=== PATIENT | female | born 1980 | race Caucasian/White ===

== ENCOUNTER 2016-04-29 08:59 | Emergency (ER) | payer MEDICAID ==
[~2016-04-29] VITALS: Ht 154.9 cm; Wt 66.0 kg
[~2016-04-29 08:59] MED LIST: IBUP800T25 PO
[2016-04-29 09:08] VITALS: Ht 154.9 cm; Wt 66.0 kg
[2016-04-29 10:59] LABS: BASOPHILS % 0.3 % (0.0-2.0); EOSINOPHILS # 0.1 10^3/ul (0.0-0.5); EOSINOPHILS % 0.9 % (0.0-7.0); HEMATOCRIT 37.5 % (37.0-47.0); HEMOGLOBIN 12.6 g/dl (12.0-16.0); LYMPHOCYTES # 1.7 10^3/ul (0.8-2.9); LYMPHOCYTES % 21.4 % (15.0-51.0); MEAN CORPUSCULAR HEMOGLOBIN 28.6 pg (29.0-33.0); MEAN CORPUSCULAR HGB CONC 33.7 g/dl (32.0-37.0); MEAN CORPUSCULAR VOLUME 84.9 fl (82.0-101.0); MEAN PLATELET VOLUME 8.4 fl (7.4-10.4); MONOCYTE # 0.3 10^3/ul (0.3-0.9); MONOCYTES % 4.1 % (0.0-11.0); NEUTROPHIL # 5.7 10^3/ul (1.6-7.5); NEUTROPHILS % 73.3 % (39.0-77.0); PLATELET COUNT 336 10^3/UL (140-440); RED BLOOD COUNT 4.42 10^6/ul (4.20-5.40); RED CELL DISTRIBUTION WIDTH 12.8 % (11.5-14.5); UNCORRECTED WBC 7.8 10^3/ul (4.8-10.8); WHITE BLOOD COUNT 7.8 10^3/ul (4.8-10.8)
[2016-04-29 11:05] LABS: CONDITION 1
--- NOTE | 2016-04-29 11:06 | ERD ---
ER Documentation Chief Complaint Date/Time DATE: 04/29/16 TIME: 11:02 Chief Complaint VAGINAL BLEEDING - 10 WEEKS LMP- 02/12/16 HPI This is a 35-year-old female who Presents to the mental department today complaining of some vaginal spotting that started this morning. Patient states she is approximately 10 weeks . States that she just found on Sunday she was and has her first appointment with Dr. Urbano on Sunday. Denies any abdominal pain, nausea vomiting, fevers or chills. 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 ROS All systems reviewed and are negative except as per history of present illness. Medications Home Meds Active Scripts Acetaminophen* (Tylophen*) 500 Mg Capsule, 1 CAP PO Q6H Y for PAIN AND OR ELEVATED TEMP, #30 CAP Prov:VANDA WARD PA-C 04/29/16 Ibuprofen* (Motrin*) 800 Mg Tab, 800 MG PO Q6 Y for PAIN, #14 TAB Prov:VANDA WARD PA-C 08/04/15 Reported Medications [None] No Conflict Check 06/19/13 Allergies Allergies: Coded Allergies: No Known Drug Allergy (Verified Allergy, Unknown, 06/19/13) PMhx/Soc Medical and Surgical Hx: pt denies Medical Hx, pt denies Surgical Hx History of Surgery: No Anesthesia Reaction: No Hx Neurological Disorder: No Hx Respiratory Disorders: No Hx Cardiac Disorders: No Hx Psychiatric Problems: No Hx Miscellaneous Medical Probl: No Hx Alcohol Use: Yes Hx Substance Use: No Hx Tobacco Use: No Physical Exam Vitals Vital Signs Date Time Temp Pulse Resp B/P Pulse Ox O2 Delivery O2 Flow Rate FiO2 04/29/16 09:08 98.4 83 17 107/72 100 Physical Exam Const: No acute distress Head: Atraumatic Eyes: Normal Conjunctiva ENT: Normal External Ears, Nose and Mouth. Neck: Full range of motion..~ No meningismus. Resp: Clear to auscultation bilaterally Cardio: Regular rate and rhythm, no murmurs Abd: Soft, non tender, non distended. Normal bowel sounds. No Right lower quadrant pain. No left lower quadrant pain Skin: No petechiae or rashes Back: No midline or flank tenderness Ext: No cyanosis, or edema Neur: Awake and alert Psych: Normal Mood and Affect Result Diagram: 04/29/16 1045 Results 24 hrs Laboratory Tests Test 04/29/16 10:38 04/29/16 10:45 Urine Bacteria MODERATE Urine Bilirubin NEGATIVE Urine Clarity CLEAR Urine Color LT. YELLOW Urine Epithelial Cells FEW Urine Glucose NEGATIVE% Urine Hemoglobin 1+ Urine Ketones 15 Urine Leukocyte Esterase NEGATIVE Urine Microscopic RBC 2-5/HPF Urine Microscopic WBC 5-10/HPF Urine Nitrite NEGATIVE Urine Specific [place] 1.020 Urine Total Protein NEGATIVE Urine Urobilinogen 0.2 E.U./dL Urine pH 6.5 Basophils # 0.010^3/ul Basophils % 0.3% Beta HCG, Quantitative 59257.0mIU/ml Blood Morphology Comment Eosinophils # 0.110^3/ul Eosinophils % 0.9% Hematocrit 37.5% Hemoglobin 12.6g/dl Lymphocytes # 1.710^3/ul Lymphocytes % 21.4% Mean Corpuscular Hemoglobin 28.6pg Mean Corpuscular Hemoglobin Concent 33.7g/dl Mean Corpuscular Volume 84.9fl Mean Platelet Volume 8.4fl Monocytes # 0.310^3/ul Monocytes % 4.1% Neutrophils # 5.710^3/ul Neutrophils % 73.3% Nucleated Red Blood Cells # 0.010^3/ul Nucleated Red Blood Cells % 0.0/100WBC Platelet Count 84742^3/UL Red Blood Count 4.4210^6/ul Red Cell Distribution Width 12.8% White Blood Count 7.810^3/ul DIAGNOSTIC IMAGING REPORT Patient: VASQUEZ DAWKINS : 1980 Age: 35 Sex: F MR #: [id number] DOS: 04/29/16 1032 Ordering MD: VANDA WARD PA-C Location: [facility] Room/Bed: PROCEDURE: OB Ultrasound. CLINICAL INDICATION: Positive test. Vaginal bleeding TECHNIQUE: Ultrasound of the pelvis was performed with transabdominal sonography in the axial and sagittal planes. COMPARISON: No prior study is available for comparison. FINDINGS: There is a single intrauterine gestational sac. pole and yolk sac are present. There is heart motion. heart rate is 166 beats per minute. [place]-rump length is 3.55 cm. Mean sac diameter is 4.32 cm. Menstrual age by ultrasound dates is 10 weeks 2 days. This indicates an expected date of delivery of 11/23/2016. The right ovary measures 4.6 x 3.5 cm. The left ovary there is not visualized. Color Doppler and pulsed Doppler sonography demonstrate normal flow to the right ovary. There is no right ovarian enlargement or mass. There is no other pelvic mass or free fluid. IMPRESSION: 1. Single live intrauterine gestation of 10 weeks 2 days menstrual age by ultrasound dates. 2. Expected date of delivery is 11/23/2016. RPTAT: QQ .Uvaldo Peterson MD, MD Date Time Electronically viewed and signed by .Uvaldo Peterson MD, MD on 04/29/2016 11:19 .R/ CC: VANDA WARD PA-C Procedures/MDM This is a 35 year old female who presents to the emergency department today complaining of vaginal spotting. Patient indicates she was approximately 10 weeks . Given this I did obtain a complete OB workup. Laboratory work shows no elevated white blood cell count. She is not anemic. Her platelets are within normal limits. UA is negative Quant hCG 29979.0 Rh status O+ Ultrasound shows a single live intrauterine gestation of 10 weeks and 2 days. There are no pelvic masses or free fluids. There is heart motion at 166 bpm. There is a pole and yolk sac. Symptoms of vaginal spotting consistent with vaginal bleeding and early . This may be related to an early normal versus early failed . I have explained this to the patient. Patient has an appointment with Dr. Urbano next week. She is instructed to follow-up with him as planned. Her that she may continue to have some vaginal bleeding. Patient denied any abdominal pain and any nausea. She declined any medications in emergency department however have been her prescription for Tylenol.. At this time the patient is stable for discharge and outpatient management. Patient should follow up with their PCP in the next 1-2 days. They may return to the emergency department sooner for any persistent or worsening of symptoms. Patient understood and agreed with the plan. Departure Diagnosis: Primary Impression: Vaginal bleeding in patient at less than 20 weeks gestation Condition: VANDA Damico PA-C Apr 29, 2016 11:06
[2016-04-29 11:10] LABS: ADD UMIC YES; URINE BILIRUBIN (Dip) NEGATIVE (NEGATIVE); URINE BLOOD (Dip) 1+ (NEGATIVE); URINE COLOR LT. YELLOW (YELLOW); URINE GLUCOSE (Dip) NEGATIVE (NEGATIVE); URINE KETONES (Dip) 15 (NEGATIVE); URINE LEUKOCYTE ESTERASE (Dip) NEGATIVE (NEGATIVE); URINE NITRITE (Dip) NEGATIVE (NEGATIVE); URINE TOTAL PROTEIN (Dip) NEGATIVE (NEGATIVE); URINE UROBILINOGEN (Dip) 0.2 E.U./dL (0.1-1.0)
--- NOTE | 2016-04-29 11:19 | RADRPT ---
PROCEDURE: OB Ultrasound. CLINICAL INDICATION: Positive test. Vaginal bleeding TECHNIQUE: Ultrasound of the pelvis was performed with transabdominal sonography in the axial and sagittal planes. COMPARISON: No prior study is available for comparison. FINDINGS: There is a single intrauterine gestational sac. pole and yolk sac are present. There is heart motion. heart rate is 166 beats per minute. [place]-rump length is 3.55 cm. Mean sac diameter is 4.32 cm. Menstrual age by ultrasound dates is 10 weeks 2 days. This indicates an expected date of delivery of 11/23/2016. The right ovary measures 4.6 x 3.5 cm. The left ovary there is not visualized. Color Doppler and pulsed Doppler sonography demonstrate normal flow to the right ovary. There is no right ovarian enlargement or mass. There is no other pelvic mass or free fluid. IMPRESSION: 1. Single live intrauterine gestation of 10 weeks 2 days menstrual age by ultrasound dates. 2. Expected date of delivery is 11/23/2016. RPTAT: QQ .Uvaldo Peterson MD, MD Date Time Electronically viewed and signed by .Uvaldo Peterson MD, on 04/29/2016 11:19 .R/
[2016-04-29 11:32] LABS: BACTERIA,URINE MODERATE
[2016-04-29] MEDS ORDERED: ACET500C5 PO (12:14)
[2016-04-29 12:51] VITALS: BP 110/75; PULSE 65; RESP 18; TEMP 98.4
== END 2016-04-29 12:52 | disposition home or self-care (01) ==
LOC: FTE 08:59
DX: O20.9 Hemorrhage in early pregnancy, unspecified (principal); Z3A.10 10 weeks gestation of pregnancy
CPT/HCPCS: 76801; 81001; 84702; 85025; 86900; 86901; Z7502; 81003

== ENCOUNTER 2016-11-08 10:16 | Outpatient (CLI) | payer MEDICAID ==
[~2016-11-08] VITALS: Ht 154.9 cm; Wt 79.0 kg
[~2016-11-08 10:16] MED LIST changes: +ACET500C5 PO
[2016-11-08] MEDS ORDERED: PRENAT PO (10:35)
[2016-11-08] MEDS ORDERED: FER325 PO (10:35)
[2016-11-08] MEDS ORDERED: CALC600T11 PO (10:35)
[2016-11-08 10:36] VITALS: BP 115/74; PULSE 102; RESP 18; Ht 154.9 cm; Wt 79.0 kg
--- NOTE | 2016-11-08 11:57 | RADRPT ---
PROCEDURE: OB ultrasound for biophysical profile CLINICAL INDICATION: Vaginal bleeding TECHNIQUE: Multiple sonographic images of the pelvis were obtained. Transabdominal views of the g ravid uterus are available for review. The images were reviewed on a PACS workstation. COMPARISON: None FINDINGS: breathing movement = 2/2 tone = 2/2 motion = 2/2 FABIÁN = 2/2 FABIÁN = 8.5 cm Single live intrauterine with cardiac activity of 168 bpm. position is cephal ic. The placenta is left lateral. IMPRESSION: 1. Single live intrauterine gestation. 2. Biophysical profile = 8/8. 3. FABIÁN = 8.5 cm. RPTAT: HH .Yessica Geuvara MD, MD Date Time Electronically viewed and signed by .Yessica Guevara MD, on 11/08/2016 11:57 .G/
--- NOTE | 2016-11-08 12:09 | RADRPT ---
PROCEDURE: US OB. CLINICAL INDICATION: labor TECHNIQUE: Multiple sonographic images of the pelvis were obtained. Transabdominal imaging only w as performed. The images were reviewed on a PACS workstation. COMPARISON: No prior studies are available for comparison. FINDINGS: There is a single live intrauterine gestation. Cardiac activity is present with 138 beats per minut e. position is cephalic. Measurements were made in order to determine age. The results are as follows: BPD = 8.81 cm HC = 31.71 cm AC = 32.94 cm FL = 7.36 cm. Estimated gestational age of approximately 36 weeks 3 days. The estimated date of delivery is 12/03/2016. The EFW = 3027 g, 26.1 %ile. The placenta is left lateral. There is no evidence for an abruption or placenta previa. IMPRESSION: 1. Single live intrauterine gestation of approximately 36 weeks 3 days, by ultrasound criteria. 2. The estimated date of delivery is 12/03/2016. 3. The estimated weight is 3027 g, 26.1 %ile. RPTAT: HH .Yessica Guevara MD, Date Time Electronically viewed and signed by .Yessica Guevara MD, on 11/08/2016 12:09 .G/
--- NOTE | 2016-11-08 13:16 | TRIAGE ---
OB Triage Datetime Report Generated by CPN: 11/08/2016 13:15 Datetime: 11/08/2016 12:55 Vaginal Exam Dilatation (cms): 2.0 Effacement (%): 70 Station: -2 Exam By: GHUKSYAN Vaginal Bleeding: Normal Show Cervix, Consistency: Moderate Cervix, Position: Midposition Datetime: 11/08/2016 12:30 Stage of : OB Triage Maternal Assessment Level of Consciousness: Fully Conscious Labor Evaluation Frequency: 1-4 Monitor Mode: External Duration (sec)2399: 40-100 Quality: Mild Resting Tone [place]: Relaxed Heart Rate FHR Baseline Rate: 150 Monitor Mode: External US Variability: Moderate 6-25 bpm Accelerations: 15X15 Decelerations: None Pain Assessment Pain Scale: 0 Pain Goal: 3 Membrane Status: Intact Vaginal Bleeding: Scant Datetime: 11/08/2016 11:30 Stage of : OB Triage Maternal Assessment Level of Consciousness: Fully Conscious Labor Evaluation Frequency: 2-6 Monitor Mode: External Duration (sec)2399: 40-100 Quality: Mild Resting Tone [place]: Relaxed Heart Rate FHR Baseline Rate: 150 Monitor Mode: External US Variability: Moderate 6-25 bpm Accelerations: 15X15 Decelerations: None Category: Category I Pain Assessment Pain Scale: 0 Pain Goal: 3 Membrane Status: Intact Vaginal Bleeding: Scant Datetime: 11/08/2016 10:44 Vaginal Exam Dilatation (cms): 2.0 Effacement (%): 70 Station: -2 Exam By: khemani/MP G Vaginal Bleeding: Normal Show Cervix, Consistency: Soft Cervix, Position: Midposition Datetime: 11/08/2016 10:32 Assessment Type: Triage EGA: 38.2 Maternal Assessment Level of Consciousness: Fully Conscious DTR's/Clonus: DTRs 2+; No Clonus Headache: Denies Blurred Vision: No Respiratory Effort: Unlabored; Regular Rhythm; Equal Expansion Breath Sounds, Left: Clear and Equal Breath Sounds, Right: Clear and Equal Nausea/Vomiting: Denies RUQ Epigastric Pain: Denies Lower Extremities Edema: Bilateral Lower Extremities Degree: 1+ Upper Extremities Edema: None Degree: None Facial Edema: None Fall Risk Assessment History of Falling: (0) No Secondary Diagnosis: (0) No Ambulatory Aid: (0) Bedrest/Nurse Assist IV Therapy: (0) No Gait: (0) Normal/Bedrest/Immobile Mental Status: (0) Oriented to Own Ability Fall Score: 0 Fall Risk Score Definition: No Risk: No action required Datetime: 11/08/2016 10:30 Time of Arrival: 11/08/2016 10:05 Chief Complaint: PT HERE C/O OF SPOTTING X 1 OCCURENCE THIS AM. PT STATES SHE WAS CHECKED VAGINALL Y YESTERDAY IN CLINIC Movement: Present Contractions: Denies/Absent Rupture of Membranes: Denies Vaginal Bleeding: Scant Vaginal Discharge: Denies Recent Sexual Intercouse: Denies Abdominal Trauma: Not Applicable Patient Complaints: None Time Provider Notified: 11/08/2016 10:58 Provider Notified: DELSHAD Initial Plan: SVE, EFM, U/S BPP, EFW, RECHECK SVE IN 2 HOURS Datetime: 11/08/2016 10:29 Monitor Mode: External Monitor Mode: External US
[2016-11-08] MEDS ORDERED: ACETAMINOPHEN 500 MG TAB PO STA (15:09)
--- NOTE | 2016-11-08 15:14 | TRIAGE ---
OB Triage Datetime Report Generated by CPN: 11/08/2016 15:14 Datetime: 11/08/2016 14:30 Stage of : OB Triage Level of Consciousness: Fully Conscious Frequency: 1-3 Monitor Mode: External Duration (sec)2399: 40-100 Quality: Mild Pattern: Normal: <= 5 Contractions in 10 Minutes Resting Tone [place]: Relaxed FHR Baseline Rate: 150 Monitor Mode: External US Variability: Moderate 6-25 bpm Accelerations: Prolonged Decelerations: None Category: Category I Pain Scale: 0 Pain Goal: 3 Membrane Status: Intact Vaginal Bleeding: Scant Datetime: 11/08/2016 13:30 Stage of : OB Triage Level of Consciousness: Fully Conscious Frequency: 1-4 Monitor Mode: External Duration (sec)2399: 40-100 Quality: Mild Pattern: Normal: <= 5 Contractions in 10 Minutes Resting Tone [place]: Relaxed FHR Baseline Rate: 150 Monitor Mode: External US Variability: Moderate 6-25 bpm Accelerations: Prolonged Decelerations: None Category: Category I Pain Scale: 0 Pain Goal: 3 Membrane Status: Intact Vaginal Bleeding: Scant
== END 2016-11-08 15:00 | disposition home or self-care (01) ==
LOC: OBT 10:16 → L-D 10:17 → OBT 15:00
PROVIDERS: ATTEND Obstetrics & Gynecology
DX: O26.853 Spotting complicating pregnancy, third trimester (principal); Z3A.38 38 weeks gestation of pregnancy
CPT/HCPCS: 76815; 76818; Z7500; Z7610; G0463

== ENCOUNTER 2016-11-10 03:16 | Inpatient (IN) | payer MEDICAID ==
[~2016-11-10] VITALS: Ht 154.9 cm; Wt 78.5 kg
[~2016-11-10 03:16] MED LIST changes: -ACET500C5 PO; +CALC600T11 PO; +FER325 PO; -IBUP800T25 PO; +PRENAT PO
[2016-11-10 04:04] VITALS: Ht 154.9 cm; Wt 78.5 kg
[2016-11-10 04:05] VITALS: BP 110/60; PULSE 90; RESP 18
--- NOTE | 2016-11-10 04:52 | TRIAGE ---
OB Triage Datetime Report Generated by CPN: 11/10/2016 04:52 Datetime: 11/10/2016 04:36 Vaginal Exam Dilatation (cms): 3.5 Effacement (%): 80 Station: -2 [place]am [place] [facility] Ruptured Date/Time: 11/10/2016 02:00 Membranes Rupture Method: Spontaneous Amniotic Fluid Color: Clear Amniotic Fluid Amount: Moderate Amniotic Fluid Odor: Normal Amniotic Fluid Odor: None Pool: Positive Datetime: 11/10/2016 04:03 Assessment Type: Triage Maternal Assessment Level of Consciousness: Fully Conscious DTR's/Clonus: DTRs 2+; No Clonus Headache: Denies Blurred Vision: No Respiratory Effort: Unlabored; Regular Rhythm; Equal Expansion Breath Sounds, Left: Clear and Equal Breath Sounds, Right: Clear and Equal Nausea/Vomiting: Denies RUQ Epigastric Pain: Denies Facial Edema: None Fall Risk Assessment History of Falling: (0) No Secondary Diagnosis: (0) No Ambulatory Aid: (0) Bedrest/Nurse Assist IV Therapy: (0) No Gait: (0) Normal/Bedrest/Immobile Mental Status: (0) Oriented to Own Ability Fall Score: 0 Fall Risk Score Definition: No Risk: No action required Datetime: 11/10/2016 03:05 Time of Arrival: 11/10/2016 03:05 EGA: 38.4 Arrived By: Wheelchair Arrived From: Home Chief Complaint: SROM 0200 Movement: Present Contractions: Irregular Rupture of Membranes: Ruptured Vaginal Bleeding: None Vaginal Discharge: Denies Recent Sexual Intercouse: Denies Abdominal Trauma: Not Applicable Patient Complaints: Contractions; Other Time Provider Notified: 11/10/2016 04:21 Provider Notified: Dr. Iniguez Initial Plan: EFM, VS Datetime: 11/08/2016 10:32 EGA: 38.2 Fall Score: 0 Fall Risk Score Definition: No Risk: No action required
[2016-11-10] MEDS ORDERED: MISOPROSTOL 200 MCG TAB PR PRN ×2 (05:00→21:00)
[2016-11-10] MEDS ORDERED: LIDOCAINE 1% (MPF) 30 ML INJ INJ PRN (05:00)
[2016-11-10] MEDS ORDERED: METHYLERGONOVINE 0.2 MG INJ IM PRN ×2 (05:00→21:00)
[2016-11-10] MEDS ORDERED: BUTORPHANOL 2 MG INJ IV PRN (05:00)
[2016-11-10] MEDS ORDERED: CARBOPROST 250 MCG INJ IM PRN ×2 (05:00→21:00)
[2016-11-10] MEDS ORDERED: OXYTOCIN 30 UNITS/LR 500 ML IV SCH ×3 (05:00→12:30)
[2016-11-10] MEDS ORDERED: OXYTOCIN 30 UNITS/LR 500 ML IV PRN ×2 (05:00→21:00)
[2016-11-10] MEDS ORDERED: IBUPROFEN 600 MG TAB PO PRN (05:00)
[2016-11-10] MEDS ORDERED: LACTATED RINGER'S 1,000 ML IV PRN (05:00)
[2016-11-10] MEDS: LACTATED RINGER'S 1,000 ML IV SCH ×2 (05:34→13:14)
--- NOTE | 2016-11-10 05:46 | RADRPT ---
PROCEDURE: Limited OB ultrasound CLINICAL INDICATION: Vaginal bleeding TECHNIQUE: Sonographic evaluation to assess the FABIÁN was performed. Transabdominal imaging of the gravid uterus was performed. COMPARISON: No prior exam is available for comparison. FINDINGS: There is a single live intrauterine with a heart rate of 136 bpm. position is cephalic. The placenta is anterior. The FABIÁN measures 10.9 cm. IMPRESSION: The FABIÁN measures 10.9 cm. RPTAT: HH .Yessica Guevara MD, MD Date Time Electronically viewed and signed by .Yessica Guevara MD, MD on 11/10/2016 05:46 .G/
[2016-11-10 06:24] LABS: INR 0.96; PROTIME 12.8 Sec (12.2-14.2)
[2016-11-10 06:25] LABS: PARTIAL THROMBOPLASTIN TIME 29.1 Sec (25.0-35.0)
[2016-11-10 06:26] LABS: BASOPHILS % 0.2 % (0.0-2.0); EOSINOPHILS # 0.1 10^3/ul (0.0-0.5); EOSINOPHILS % 1.4 % (0.0-7.0); HEMOGLOBIN 11.5 g/dl (12.0-16.0); LYMPHOCYTES # 1.7 10^3/ul (0.8-2.9); LYMPHOCYTES % 17.6 % (15.0-51.0); MEAN CORPUSCULAR HGB CONC 32.9 g/dl (32.0-37.0); MEAN CORPUSCULAR VOLUME 88.2 fl (82.0-101.0); MEAN PLATELET VOLUME 10.5 fl (7.4-10.4); MONOCYTE # 0.8 10^3/ul (0.3-0.9); MONOCYTES % 7.9 % (0.0-11.0); NEUTROPHIL # 6.8 10^3/ul (1.6-7.5); NEUTROPHILS % 71.7 % (39.0-77.0); PLATELET COUNT 264 10^3/UL (140-415); RED BLOOD COUNT 3.97 10^6/ul (4.20-5.40); RED CELL DISTRIBUTION WIDTH 15.1 % (11.5-14.5); WHITE BLOOD COUNT 9.5 10^3/ul (4.8-10.8)
--- NOTE | 2016-11-10 17:24 | LDN ---
Date/Time of Note Date/Time of Note DATE: 11/10/16 TIME: 17:20 Delivery Summary Weeks of Gestation 38+ Placenta Delivered: Spontaneously Meconium: none Episiotomy: No Anesthesia type: None Estimated blood loss: 200 Sponge & Needle done & correct: Yes All needle counts correct: Yes Any foreign bodies felt in the: No Problems: Infant Delivery Information Apgars 1 Minute: 9 5 Minute: 9 Suctioning Nose & mouth suctioned at zita: Yes Delee suction performed: Yes Umbilical Cord Umbilical cord with: 3 Vessels Cord presentations: no nuchal cord Cord Blood was obtained: Yes Mother & Baby Disposition Disposition Mom & Baby to Maternity; Good: Yes Baby to NICU: No LUCY ANGULO M.D. Nov 10, 2016 17:24
[2016-11-10 20:00] VITALS: BP 114/67; PULSE 113; RESP 19
[2016-11-10 20:15] VITALS: BP 113/59; PULSE 103; RESP 18
[2016-11-10] MEDS ORDERED: LACTATED RINGER'S 1,000 ML IV* SCH (20:31)
[2016-11-10] MEDS: SENNA/DOCUSATE NA (8.6MG/50MG) TAB PO SCH (20:59)
[2016-11-10] MEDS ORDERED: LANOLIN 7 GM TUBE TOP PRN (21:00)
[2016-11-10] MEDS ORDERED: SENNA/DOCUSATE NA (8.6MG/50MG) TAB PO PRN (21:00)
[2016-11-10] MEDS ORDERED: ZOLPIDEM 5 MG TAB PO PRN (21:00)
[2016-11-10] MEDS ORDERED: BENZOCAINE 20% 56 ML SPRAY TOP PRN (21:00)
[2016-11-10] MEDS ORDERED: WITCH HAZEL/GLYCERIN PAD PR PRN (21:00)
[2016-11-10] MEDS: IBUPROFEN 600 MG TAB PO SCH (23:48)
[2016-11-11] VITALS: BP 105/65; PULSE 99; RESP 19
[2016-11-11] MEDS: OXYCODONE/ASPIRIN (4.88/325) TAB PO PRN ×2 (00:33→21:36)
[2016-11-11 04:00] VITALS: BP 105/63; PULSE 74; RESP 18
[2016-11-11] MEDS: IBUPROFEN 600 MG TAB PO SCH ×4 (05:52→23:28)
[2016-11-11 08:23] LABS: BASOPHILS % 0.2 % (0.0-2.0); EOSINOPHILS % 0.1 % (0.0-7.0); HEMATOCRIT 31.6 % (37.0-47.0); HEMOGLOBIN 10.4 g/dl (12.0-16.0); LYMPHOCYTES # 1.9 10^3/ul (0.8-2.9); LYMPHOCYTES % 11.6 % (15.0-51.0); MEAN CORPUSCULAR HEMOGLOBIN 29.1 pg (29.0-33.0); MEAN CORPUSCULAR HGB CONC 32.9 g/dl (32.0-37.0); MEAN CORPUSCULAR VOLUME 88.5 fl (82.0-101.0); MEAN PLATELET VOLUME 10.4 fl (7.4-10.4); MONOCYTE # 0.9 10^3/ul (0.3-0.9); MONOCYTES % 5.7 % (0.0-11.0); NEUTROPHIL # 13.2 10^3/ul (1.6-7.5); NEUTROPHILS % 81.4 % (39.0-77.0); PLATELET COUNT 238 10^3/UL (140-415); RED BLOOD COUNT 3.57 10^6/ul (4.20-5.40); RED CELL DISTRIBUTION WIDTH 15.2 % (11.5-14.5); WHITE BLOOD COUNT 16.3 10^3/ul (4.8-10.8)
[2016-11-11 08:45] VITALS: BP 104/53; PULSE 80; RESP 18
[2016-11-11] MEDS: SENNA/DOCUSATE NA (8.6MG/50MG) TAB PO SCH ×2 (11:55→21:36)
--- NOTE | 2016-11-11 14:58 | HP ---
Date/Time of Note Date/Time of Note DATE: 11/11/16 TIME: 14:56 OB - History Hx of Present Chief Complaint: contractions Estimated Due Date: Nov 20, 2016 : 7 Para: 2 Spontaneous : 4 Therapeutic : 0 Care: Good Care Ultrasounds: Normal mid trimester US Obstetrical Complications: None Medical Complications: None Past Family/Social History * Past Medical, Surgical, Family and Obstetric Histories reviewed from chart. GBS Status: Negative OB Admission Exam Vital Signs Vital Signs Vital Signs Date Time Temp Pulse Resp B/P Pulse Ox O2 Delivery O2 Flow Rate FiO2 11/11/16 08:45 98.4 80 18 104/53 Room Air Physical Exam HEENT: WNL Heart: Rhythm Normal Lungs: Clear, Equal Abdomen: WNL Extremities: Normal Reflexes: Normal Cervical Dilatation: 3cm Effacement: 50% Station: -1 Membranes: Ruptured Amniotic Fluid: Clear Heart Rate: 130's Accelerations: Accelerations Present Decelerations: No Decelerations Varibility: Moderate Last 72 hours Lab Results CBC & BMP 11/10/16 05:30 11/11/16 07:36 OB Assessment/Plan Reason for admission: active labor Plan: Expectant Management LEAH MONCADA MD Nov 11, 2016 14:58
--- NOTE | 2016-11-11 15:11 | QN ---
Documentation Comment No complaint Afebrile VSS Fundus firm Lochia scant PPD #1 Stable Continue present care. LEAH MONCADA MD Nov 11, 2016 15:11
[2016-11-11 15:57] VITALS: BP 101/56; PULSE 78; RESP 16
[2016-11-11 19:45] VITALS: BP 108/66; PULSE 82; RESP 18
[2016-11-12 04:04] VITALS: BP 102/58; PULSE 66; RESP 19
[2016-11-12] MEDS: OXYCODONE/ASPIRIN (4.88/325) TAB PO PRN (04:04)
[2016-11-12] MEDS: IBUPROFEN 600 MG TAB PO SCH ×2 (05:37→11:29)
[2016-11-12 06:29] LABS: BASOPHIL # 0.1 10^3/ul (0.0-0.1); BASOPHILS % 0.5 % (0.0-2.0); EOSINOPHILS # 0.2 10^3/ul (0.0-0.5); EOSINOPHILS % 1.5 % (0.0-7.0); HEMOGLOBIN 9.9 g/dl (12.0-16.0); LYMPHOCYTES # 2.5 10^3/ul (0.8-2.9); LYMPHOCYTES % 20.8 % (15.0-51.0); MEAN CORPUSCULAR HEMOGLOBIN 29.1 pg (29.0-33.0); MEAN CORPUSCULAR HGB CONC 31.9 g/dl (32.0-37.0); MEAN CORPUSCULAR VOLUME 91.2 fl (82.0-101.0); MEAN PLATELET VOLUME 10.5 fl (7.4-10.4); MONOCYTE # 0.8 10^3/ul (0.3-0.9); NEUTROPHIL # 8.2 10^3/ul (1.6-7.5); NEUTROPHILS % 68.9 % (39.0-77.0); PLATELET COUNT 247 10^3/UL (140-415); RED CELL DISTRIBUTION WIDTH 15.5 % (11.5-14.5); WHITE BLOOD COUNT 11.9 10^3/ul (4.8-10.8)
[2016-11-12 08:30] VITALS: BP 106/59; PULSE 66; RESP 19
[2016-11-12] MEDS ORDERED: DIPHTH/TET/ACEL PERTUSS (ADULT) 0.5 ML VIAL IM* ONE (09:00)
[2016-11-12] MEDS: SENNA/DOCUSATE NA (8.6MG/50MG) TAB PO SCH (09:14)
--- NOTE | 2016-11-12 11:40 | DS ---
Date/Time of Note Date/Time of Note DATE: 11/12/16 TIME: 11:39 Obstetrical Discharge Record Final Diagnosis Final Diagnosis: Term delivered Vaginal Delivery Obstetrical Delivery: Spontaneous Condition on Discharge Physical Assessment Voiding: Yes Bowel Movement: Yes Breast: Soft, non-tender Fundus: Firm Calf Tenderness: No Patient Condition: Stable LEAH MONCADA MD Nov 12, 2016 11:39
== END 2016-11-12 15:28 | disposition home or self-care (01) | DRG 775 ==
LOC: OBT 03:16 → L-D 03:41 → OBT 04:45 → PP1 20:04
PROVIDERS: ADMIT Obstetrics & Gynecology; ATTEND Obstetrics & Gynecology
PROC: 10E0XZZ Delivery of Products of Conception, External Approach (ICD-10-PCS; principal; 2016-11-10)
PROC: 3E033VJ Introduction of Other Hormone into Peripheral Vein, Percutaneous Approach (ICD-10-PCS; 2016-11-10)
DX: O80 Encounter for full-term uncomplicated delivery (principal); Z37.0 Single live birth; Z3A.38 38 weeks gestation of pregnancy
CPT/HCPCS: 76815; 85025; 85610; 85730; 86592; 86900; 86901; 87340; 90715; G0463; J0595; J2590; J7120